=== PATIENT | female | born 1985 | race African-American/Black ===

== ENCOUNTER 2016-06-03 09:52 | Emergency (ER) | payer MEDICAID ==
[~2016-06-03] VITALS: Ht 167.6 cm; Wt 146.0 kg
[2016-06-03 09:59] VITALS: BP 150/99
[2016-06-03] MEDS ORDERED: CYCLOBENZAPRINE 10MG TABLET PO ONE (10:45)
[2016-06-03] MEDS ORDERED: ACETAMINOPHEN 325MG TABLET PO NR (11:15)
== END 2016-06-03 14:00 | disposition home or self-care (01) ==
LOC: ER 10:35
DX: Z04.1 Encounter for examination and observation following transport accident (principal)
CPT/HCPCS: 72100; 73030; 73110; 73130; 73610; 99284